=== PATIENT | female | born 1940 | race Caucasian/White ===

== ENCOUNTER 2019-01-06 04:43 | Emergency (ER) | payer MEDICARE ==
--- NOTE | 2019-01-06 05:08 | ED ---
Hypertension - HPI Summary HPI Summary: This patient is a 78 year old F presenting [place] [facility] [place] accompanied by with a chief complaint of elevated blood pressure that began yesterday night. The patient rates the pain 0/10 in severity. Symptoms aggravated by nothing. Symptoms alleviated by nothing. Patient denies CP. Patient starts she recently started a new medication. - History of Current Complaint Chief Complaint: EDHypertension Stated Complaint: "HIGH BP" PER PT Time Seen by Provider: 01/06/19 04:56 Hx Obtained From: Patient Onset/Duration: Started Hours Ago, Atraumatic, Still Present Timing: Constant Aggravating Factor(s): Nothing Alleviating Factor(s): Nothing Associated Signs & Symptoms: Other: - Negative CP - Allergies/Home Medications Allergies/Adverse Reactions: Allergies Allergy/AdvReac Type Severity Reaction Status Date / Time amoxicillin Allergy Rash Verified 01/06/19 04:56 ampicillin Allergy Rash Verified 01/06/19 04:56 codeine Allergy Headache Verified 01/06/19 04:56 gabapentin Allergy Swelling Verified 01/06/19 04:56 Of Face,Lips,& Throat Sulfa (Sulfonamide Allergy Rash Verified 01/06/19 04:56 Antibiotics) Home Medications: Home Medications ALPRAZolam [Alprazolam] 0.25 mg PO Q4H PRN MDD 3 tabs 01/06/19 [History Confirmed 01/06/19] Telmisartan 80 mg PO DAILY 01/06/19 [History Confirmed 01/06/19] PMH/Surg Hx/FS Hx/Imm Hx Previously Healthy: No Cardiovascular History: Reports: Hx Hypertension - Controlled with medication GI History: Reports: Hx Gastroesophageal Reflux Disease - On medication to control Sensory History: Reports: Hx Contacts or Glasses - glasses Denies: Hx Hearing Aid Opthamlomology History: Reports: Hx Contacts or Glasses - glasses Neurological History: Reports: Other Neuro Impairments/Disorders - Surgical History Surgery Procedure, Year, and Place: Tonsillectomy 1944, [place]. Right breast biopsy 1962, [facility]. [place] 1992, [place]. Left hand surgery,2002 [facility] [place]. [place]aste[place]. Left Mastectomy 2008 [facility] Hx Anesthesia Reactions: No Infectious Disease History: No Infectious Disease History: Denies: Traveled Outside the [place] in Last 30 Days - Family History Known Family History: Positive: Other - Negative anesthesia reaction - Social History Occupation: Retired Lives: With Family Alcohol Use: Weekly Alcohol Amount: 1 DRINK Hx Substance Use: No Substance Use Type: Reports: None Hx Tobacco Use: No Smoking Status (MU): Never Smoked Tobacco Review of Systems Positive: Chest Pain, Other - Positive elevated BP Negative: Shortness Of Breath All Other Systems Reviewed And Are Negative: Yes Physical Exam - Summary Physical Exam Summary: Appearance: Well appearing, no pain distress Skin: warm, dry, reflects adequate perfusion Head/face: normal Eyes: EOMI, COLTON ENT: normal Neck: supple, non-tender Respiratory: CTA, breath sounds present Cardiovascular: RRR, pulses symmetrical Abdomen: non-tender, soft Musculoskeletal: normal, strength/ROM intact Neuro: normal, sensory motor intact, A&Ox3 Triage Information Reviewed: Yes Vital Signs On Initial Exam: Initial Vitals Temp Pulse Resp BP Pulse Ox 97.4 F 63 16 209/100 98 01/06/19 04:46 01/06/19 04:46 01/06/19 04:46 01/06/19 04:46 01/06/19 04:46 Vital Signs Reviewed: Yes Diagnostics - Vital Signs Vital Signs Temp Pulse Resp BP Pulse Ox 01/06/19 04:46 97.4 F 63 16 209/100 98 - Laboratory Lab Statement: Any lab studies that have been ordered have been reviewed, and results considered in the medical decision making process. Hypertension Course/Dx - Course Course Of Treatment: This patient is a 78 year old F presenting to [facility] [place] accompanied by with a chief complaint of hypertension that began yesterday night. Physical Exam Findings: Nml. In the ED course the patient was given clonidine. Patient will be discharged with prescription follow up from PCP. The patient is agreeable with this plan. - Diagnoses Provider Diagnoses: Hypertension Discharge - Sign-Out/Discharge Documenting (check all that apply): Patient Departure - Discharge home Patient Received Moderate/Deep Sedation with Procedure: No - Discharge Plan Condition: Stable Disposition: HOME Patient Education Materials: Chronic Hypertension (ED) Referrals: Lillie Greenwood [Primary Care Provider] - 2 Days Additional Instructions: RETURN TO THE EMERGENCY DEPARTMENT FOR NEW OR WORSENING SYMPTOMS - Billing Disposition and Condition Condition: STABLE Disposition: Home - Attestation Statements Document Initiated by Scribe: Yes Documenting Scribe: Iris Rock Provider For Whom Scribe is Documenting (Include Credential): Dr. Charles Figueroa MD Scribe Attestation: I, Iris Rock, scribed for Dr. Charles Figueroa MD on 01/06/19 at 0630. Scribe Documentation Reviewed: Yes Provider Attestation: The documentation as recorded by the scribe, Iris Rock accurately reflects the service I personally performed and the decisions made by me, Dr. Charles Figueroa MD Status of Scribe Document: Viewed
[2019-01-06] MEDS ORDERED: cloNIDine TAB* 0.1 MG PO ONE (05:12)
[2019-01-06 06:33] VITALS: BP 147/92
== END 2019-01-06 06:33 | disposition home or self-care (01) ==
LOC: ED 04:43
DX: I10 Essential (primary) hypertension (principal); K21.9 Gastro-esophageal reflux disease without esophagitis; Z88.5 Allergy status to narcotic agent; Z88.2 Allergy status to sulfonamides
CPT/HCPCS: 99283; A9270-GY

== ENCOUNTER 2019-01-31 10:51 | Emergency (ER) | payer MEDICARE, OTHER ==
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
[2019-01-31 12:26] VITALS: BP 154/74
== END 2019-01-31 12:31 | disposition home or self-care (01) ==
LOC: ED 10:51
DX: S00.93XA Contusion of unspecified part of head, initial encounter (principal); R22.1 Localized swelling, mass and lump, neck; I10 Essential (primary) hypertension; K21.9 Gastro-esophageal reflux disease without esophagitis; Z88.2 Allergy status to sulfonamides; V89.2XXA Person injured in unspecified motor-vehicle accident, traffic, initial encounter; Y92.9 Unspecified place or not applicable
CPT/HCPCS: 70450; 72125; 99282